=== PATIENT | female | born 2000 | race Caucasian/White ===

== ENCOUNTER 2022-10-03 16:03 | Emergency (ER) | payer OTHER, SELFPAY ==
--- NOTE | ~2022-10-03 | XR_ITS ---
EXAM: XR foot RT 2V DATE: 10/03/2022 16:42 HISTORY: PAIN ON DORSAL SIDE OF 4TH-5TH METATARSAL . COMPARISON: None available. FINDINGS: Normal mineralization. No fracture or dislocation. No lytic or blastic lesion. Plantar ent hesopathy. No erosion or periosteal change. Soft tissues within normal limits. IMPRESSION: No acute osseous finding in the right foot. Reviewed, dictated and finalized at [facility]. [employer]
[2022-10-03 16:08] VITALS: BP 144/81; PULSE 90; RESP 16; TEMP 36.6; O2SAT 98
[2022-10-03 16:11] VITALS: BP 144/81; PULSE 97; RESP 16; TEMP 36.6; O2SAT 98
--- NOTE | 2022-10-03 16:21 | ED.LOWEXIN ---
HPI - Extremity Injury (Lower) General Chief Complaint: Extremity Injury, Lower Stated Complaint: RIGHT ANKLE INJURY Time Seen by Provider: 10/03/22 16:20 History of Present Illness HPI Narrative: 22-year-old female patient is here with complaints of right foot pain since she fell off a few steps last night while taking the trash out. She has been walking on the right foot with some difficulty. She denies any pain in the ankle. She denies any other injuries to the legs or denies hitting her head. . Patient denies any ongoing medical problems. Takes no routine medications. Related Data Home Medications Medication Instructions Recorded Confirmed etonogestrel 68 mg subdermal 1 implant subdermal ONCE 11/19/20 10/03/22 implant (Nexplanon) Allergies Allergy/AdvReac Type Severity Reaction Status Date / Time No Known Allergies Allergy Verified 10/03/22 16:14 Review of Systems Review of Systems: All systems reviewed & are unremarkable except as noted in HPI and below PMFSH Family History Family History Father Cerebrovascular accident Social History Social History Smoking status: Never smoker Alcohol intake: never Substance use: never Exam Narrative: Alert female patient who appears in no acute distress. Vital signs are stable. Her triage blood pressure is slightly elevated 144/81 however she does not have a history of hypertension. Normal appearing HEENT. No respiratory distress. Right foot is examined. There is slight swelling in the proximal mid foot dorsally with no obvious bruising or deformity. There is tenderness across the midfoot area. There is no tenderness of the ankle joint. No deformity or swelling is noted around the ankle joint. Dorsalis pedis pulse is intact. Sensations distally to the toes is intact as well. Rest of the physical examination is unremarkable. Course Course Emergency Course: Patient is aware of the negative x-ray and the discharge plans. Her blood pressure is downto 135/80 Vital Signs Vital signs: Vital Signs Temperature 36.6 C 10/03/22 16:08 Pulse Rate 90 10/03/22 16:08 Respiratory Rate 16 10/03/22 16:08 Blood Pressure 144/81 H 10/03/22 16:08 Pulse Oximetry 98 10/03/22 16:08 Temperature 36.6 C 10/03/22 16:11 Pulse Rate 97 10/03/22 16:11 Respiratory Rate 16 10/03/22 16:11 Blood Pressure 144/81 H 10/03/22 16:11 Pulse Oximetry 98 10/03/22 16:11 Oxygen Delivery Room Air 10/03/22 16:11 Discharge Plan Discharge Clinical Impression: Muscle strain of right foot Patient Disposition: Home, Self-Care Condition: Stable Instructions: Foot Sprain (ED) Additional Instructions: Wear the navneet wrap for comfort Wear comfortable shoes and avois flip-flops Elevate the foot and Ice it Weight bearing as tolerated Tylenol 500 mg and Ibuprofen 400 mg every 6-8 hours as needed for pain Prescriptions: No Action Nexplanon 68 mg implant 1 implant subdermal ONCE Rx Instructions: as a single dose Follow-up/Referrals: Mirza,RIN Elder [Primary Care Provider] - Time of Disposition: 17:00
[2022-10-03 17:07] VITALS: BP 122/49; PULSE 88; RESP 16; TEMP 36.8; O2SAT 98
== END 2022-10-03 17:08 | disposition home or self-care (01) ==
PROVIDERS: Emergency Provider Emergency Medicine; PCP Physician Assistant
DX: S96.911A Strain of unspecified muscle and tendon at ankle and foot level, right foot, initial encounter (principal); W10.9XXA Fall (on) (from) unspecified stairs and steps, initial encounter
CPT/HCPCS: 73620; 99283

== ENCOUNTER 2023-12-24 01:08 | Emergency (ER) | payer OTHER, SELFPAY ==
[2023-12-24] VITALS (9 sets, daily range): BP systolic 86–125; BP diastolic 53–83; PULSE 54–96; RESP 18–20; TEMP 36.9; O2SAT 95–100
--- NOTE | ~2023-12-24 | CT_ITS ---
EXAMINATION: CT brain wo con DATE: 12/24/2023 03:03 INDICATION: Syncope. Right headache. TECHNIQUE: Computed tomography (CT) of the head was performed without intravenous contrast. The mA wa s adjusted according to patient size. Iterative reconstruction technique was employed. Exam dose: 60 5.33 mGy-cm total exam DLP. COMPARISON: None FINDINGS: Normal calderon-white matter differentiation. Normal ventricular size. No intracranial mass les ion or hemorrhage, midline shift or mass effect. No evidence of cerebrovascular accident. No subdural or epidural hematoma. Soft tissue thickening of the right middle ear cavity and opacification of the right epitympanic rece ss. No fracture or bone destruction of the cranial vault. IMPRESSION: Soft tissue opacification of right middle ear cavity and right epitympanic recess No significant intracranial abnormality Reviewed, dictated and finalized at [facility]. Reviewed, dictated and finalized at [facility]. IMPRESSION: Soft tissue opacification of right middle ear cavity and right epi tympanic recess No significant intracranial abnormality
[2023-12-24 01:14] LABS: Glucose Point of Care 108 mg/dl (65-105)
--- NOTE | 2023-12-24 01:16 | ECG_ITS ---
Measurements Intervals [place] Rate: 65 P: 20 DC: 152 QRS: 61 QRSD: 93 T: 21 QT: 405 QTc: 423 Interpretive Statements SINUS RHYTHM NO PREVIOUS ECG AVAILABLE FOR COMPARISON Electronically Signed On 12-26-2023 12:46:59 CDT by Unruly Koch M.D.
--- NOTE | 2023-12-24 01:19 | ED.SYNCOPE ---
HPI - Syncope General Chief Complaint: Syncope Stated Complaint: syncope Time Seen by Provider: 12/24/23 01:15 Source: patient Mode of arrival: ambulatory Limitations: no limitations History of Present Illness HPI narrative: patient is a 23-year-old female who was going to the bathroom and had some nausea and right before she was able to use the restroom, she had a syncopal episode and woke up on the floor. MD complaint: loss of consciousness, felt faint and collapsed Onset (ago): hour(s) (1) Duration of episode: 10 -: second(s) Prodromal symptoms: lightheaded, nausea/vomiting and other ( Warm sensation) Witnessed: No Context: other ( while getting ready to go to the bathroom) Injuries sustained associated with event: none Current symptoms: none Treatments prior to arrival: none Related Data Home Medications Medication Instructions Recorded Confirmed etonogestrel 68 mg subdermal 1 implant subdermal ONCE 11/19/20 10/03/22 implant (Nexplanon) Allergies Allergy/AdvReac Type Severity Reaction Status Date / Time No Known Allergies Allergy Verified 10/03/22 16:14 Review of Systems Review of Systems: All systems reviewed & are unremarkable except as noted in HPI and below Constitutional: Constitutional: Reports no additional constitutional complaints Eyes: Eyes: Reports no additional eye complaints ENT: Reports system reviewed and no additional complaints, except as documented Cardiovascular: Cardiovascular: Reports no additional cardiovascular complaints Respiratory: Respiratory: Reports no additional respiratory complaints Gastrointestinal: Gastrointestinal: Reports no additional gastrointestinal complaints Genitourinary: Genitourinary: Reports no additional female genitourinary complaints Musculoskeletal: Musculoskeletal: Reports no additional musculoskeletal complaints Integumentary/Breasts: Skin/Breast: Reports system reviewed and no additional complaints, except as docu Neurologic: Reports system reviewed and no additional complaints, except as documented Psychiatric: Psychiatric: Reports no additional psychiatric complaints Endocrine: Endocrine: Reports no additional endocrine complaints Hematologic/Lymphatic: Hematologic/Lymphatic: Reports no additional hematologic/lymphatic complaints Allergic/Immunologic: Allergic/Immunologic: Reports no additional allergic/immunologic complaints PMFSH Family History Family History Father Cerebrovascular accident Social History Social History Smoking status: Never smoker Alcohol intake: never Substance use: never Exam Const: General: healthy appearing Nutritional Appearance: well nourished Orientation/consciousness: patient oriented x3 HENMT: Head: normal to inspection Ears: external ears normal Face/Nose/Sinus: Normal external nose present Eyes: Conjunctivae: conjunctivae normal Pupils: Equal, round and reactive pupils present EOM: EOMs intact bilaterally Neck: Neck: normal visual inspection Chest: Chest palpation & inspection: normal inspection of the chest Resp: Effort & Inspection: normal respiratory effort and not labored Auscultation: clear to auscultation bilaterally Cardio: Rate: regular rate Rhythm: regular rhythm Heart sounds: no murmurs GI: Inspection: non-distended GI Palp: Yes Soft to palpation and No Tenderness to palpation present (GI) Auscultation: normal bowel sounds : General: Yes bladder normal to palpation Back/Spine/Pelvis: Back: no CVA tenderness Skin: General skin exam: normal color Rashes: no rashes Wounds: no wounds Neuro: General: patient oriented x3 Cranial nerves: Yes Nystagmus not present Speech: normal speech Other: fast exam was negative GCS was 15 NIH was 0 Extrem: General: normal to inspection Psych: Mental Status: mental status grossly normal Affect: norm
[2023-12-24 01:35] LABS: Basophils Absolute Auto 0.02 K/mm3 (0.00-0.10); Basophils Percent Auto 0.1 % (0.0-1.0); Eosinophils Absolute Auto 0.05 K/mm3 (0.02-0.50); Eosinophils Percent Auto 0.3 % (1.0-6.0); Hematocrit 46.2 % (35.0-49.0); Hemoglobin 15.6 g/dL (12.0-15.0); Immature Granulocyte Absolute 0.06 K/mm3 (0.00-0.00); Immature Granulocyte Percent A 0.4 % (0.0-0.0); Lymphocytes Absolute Auto 3.37 K/mm3 (1.10-4.50); Lymphocytes Percent Auto 22.5 % (18.0-42.0); Mean Corpuscular HGB Conc 33.8 g/dL (32-36); Mean Corpuscular Hemoglobin 30.5 pg (27.0-31.0); Mean Corpuscular Volume 90.4 fL (78.0-102.0); Monocytes Absolute Auto 0.54 K/mm3 (0.10-0.90); Monocytes Percent Auto 3.6 % (2.0-11.0); Neutrophils Absolute Auto 10.97 K/mm3 (1.70-7.20); Neutrophils Percent Auto 73.1 % (50.0-70.0); Platelet Count Result 302 K/mm3 (150-420); Red Blood Count 5.11 M/mm3 (4.20-5.40); Red Cell Distribution Width 12.2 % (11.6-14.4)
[2023-12-24] MEDS: SODIUM CHLORIDE 0.9% IV 1,000 ML 999 ML IV CONT (01:38)
[2023-12-24 01:57] LABS: Alanine Aminotransferase 65 U/L (14-59); Albumin Level 4.2 g/dL (3.4-5.0); Alkaline Phosphatase 102 U/L (46-116); Anion Gap 14 mmol/L (4-12); Aspartate Amino Transferase 26 U/L (15-37); Bilirubin,Total 0.4 mg/dL (0.00-1.00); Blood Urea Nitrogen 14 mg/dL (7-18); Calcium 9.1 mg/dL (8.5-10.1); Carbon Dioxide 24 mmol/L (21-32); Chloride 102 mmol/L (98-108); Estimated CRCL calculation 136 ml/min; Estimated Glomerular Filt Rate > 60; Glucose 110 mg/dL (70-99); Osmolality Calculated 291 mOsm/kg (285-295); Potassium 3.5 mmol/L (3.5-5.1); Sodium 140 mmol/L (136-145); Thyroid Stimulating Hormone 1.72 uIU/mL (0.36-3.74)
[2023-12-24 01:59] LABS: Troponin I < 4.0 ng/L (0.00-60.4)
[2023-12-24] MEDS: ONDANSETRON INJ 4 MG/2 ML VIAL IV PUSH (02:08)
[2023-12-24 02:46] LABS: SPREG INTERNAL CONTROL Positive; Serum Qual hCG Negative
[2023-12-24 04:14] LABS: Appearance Urine Sl Cloudy (Clear); Bilirubin Urine 1+ (Negative); Blood Urine 1+ (Negative); Color Urine Yellow (Yellow); Glucose Urine UA Negative (Negative); Ketones Urine 2+ (Negative); Leukocyte Esterase Ur 1+ LEU/UL (Negative); Nitrate Urine Negative (Negative); Protein Urine 1+ (Negative); Specific Grav Ur 1.025 (1.010-1.020); Urobilinogen Urine 0.2 mg/dL (0.2-1.0)
[2023-12-24 04:19] LABS: Add Urine Microscopic? YES
[2023-12-24 04:20] LABS: Bacteria Urine 1+ /hpf; Mucus Urine Moderate /lpf; Squamous Epithelial Cell Urine Moderate /hpf (Few)
[2023-12-24 04:25] LABS: Amphetamine Screen Urine Negative (Negative); Barbiturate Screen Urine Negative (Negative); Benzodiazepines Screen Urine Negative (Negative); Cannabinoid Screen Urine Negative (Negative); Cocaine Screen Urine Negative (Negative); Methadone Screen Urine Negative (Negative); Opiate Screen Urine Negative (Negative); Phencyclidine Screen Urine Negative (Negative)
[2023-12-24] MEDS: CIPROFLOXACIN 500 MG TAB PO (04:27)
--- NOTE | 2023-12-26 13:45 | PC.NURSE ---
FINAL URINE CULTURE RESULTS: MIXED GENITAL ADY ISOLATED. ISOLATE 1: 10,000-49,000 CFU/ML OF GROUP B STREPTOCOCCUS ISOLATED. PER DR WILLIAMSON NO CHANGE IN [place] NEEDED.
== END 2023-12-24 04:42 | disposition home or self-care (01) ==
PROVIDERS: Emergency Provider Emergency Medicine; PCP Family Medicine
DX: I95.1 Orthostatic hypotension (principal); N39.0 Urinary tract infection, site not specified
CPT/HCPCS: 36415; 70450; 80053; 80307; 81001; 82948; 84443; 84484; 84703; 85025; 87077; 87086; 87088; 93005; 96361; 96374; 99284; A9270; J2405; J7030